=== PATIENT | female | born 1960 | race Hispanic/Latino ===

== ENCOUNTER 2022-02-18 09:40 | Observation (INO) | payer MEDICARE, OTHER ==
[2022-02-18] MEDS ORDERED: FOLIC ACID 5 MG/ML VIAL ONE (10:10)
[2022-02-18] MEDS ORDERED: NA CHLORIDE 0.9% 1,000 ML ONE (10:10)
--- NOTE | 2022-02-18 10:27 | RAD REPORT ---
EXAM DESCRIPTION: RAD - Chest Single View - 02/18/2022 10:15 am CLINICAL HISTORY: COUGH Chest pain. COMPARISON: No comparisons FINDINGS: Portable technique limits examination quality. The lungs are mildly emphysematous but grossly clear. The heart is normal in size. No displaced fract ures. IMPRESSION: No acute intrathoracic process suspected.
[2022-02-18 10:33] LABS: Absolute Lymphocytes (CBC) 2.5 K/uL (0.7-4.9); Hematocrit 39.8 % (36.0-45.0); Lymphocytes % 37.2 % (15.3-44.8); MCV 82.7 fL (80-100); MPV 8.5 fL (7.6-11.3); RBC Red Blood Cell Count 4.82 M/uL (3.86-4.86)
[2022-02-18 10:38] LABS: Protime INR 1.03
[2022-02-18 10:44] LABS: Urine Blood Trace-intact (Negative); Urine Glucose Negative (Negative); Urine Protein Negative (Negative); Urine pH 7.5 (5.0-7.0)
--- NOTE | 2022-02-18 10:47 | RAD REPORT ---
EXAM DESCRIPTION: CT - Ct Stroke Brain Wo Cont - 02/18/2022 10:21 am CLINICAL HISTORY: Neuro deficit, acute, stroke suspected Headache, drowsiness COMPARISON: Head angio dated 02/18/2022 TECHNIQUE: All CT scans are performed using dose optimization technique as appropriate and may inclu de automated exposure control or mA/KV adjustment according to patient size. FINDINGS: No intracranial hemorrhage, hydrocephalus or extra-axial fluid collection.No areas of brai n edema or evidence of midline shift. 19 x 16 mm suspected partially calcified mass seen left posteri or fossa, probably extra-axial location. This may represent the meningioma. The paranasal sinuses and mastoids are clear. The calvarium is intact. IMPRESSION: No acute intracranial abnormality. Probable 19 x 16 mm partially calcified mass left posterior fossa may represent a meningioma. Recomme nd MRI brain with contrast for further assessment. The findings were discussed with Dr Sequeira in the emergency room on 02/18/2022 at 10:22 a.m. by patti cobb.
[2022-02-18 10:48] LABS: ALT/SGPT 17 U/L (12-78); AST/SGOT 11 U/L (15-37); Albumin 3.5 g/dL (3.4-5.0); Alkaline Phosphatase 103 U/L (45-117); BUN Blood Urea Nitrogen 10 mg/dL (7-18); Bicarbonate 29 mmol/L (21-32); Bilirubin Direct < 0.1 mg/dL (0-0.2); Bilirubin Total 0.3 mg/dL (0.2-1.0); C-Reactive Protein 8.75 mg/L (<3.00); Glomerular Filtration Rate 77 ml/min (=/>90); Glucose Level 120 mg/dL (74-106); Magnesium 2.1 mg/dL (1.8-2.4); NT PRO-BNP 153 pg/mL (<125); Potassium 3.1 mmol/L (3.5-5.1); Protein, Total 6.9 g/dL (6.4-8.2); Sodium Level 140 mmol/L (136-145); Troponin High Sensitivity 7.2 pg/mL (<58.9)
--- NOTE | 2022-02-18 10:50 | RAD REPORT ---
EXAM DESCRIPTION: CT - Head angio - 02/18/2022 10:22 am CLINICAL HISTORY: Neuro deficit, acute, stroke suspected Headache, drowsiness, CVA symptomology COMPARISON: No comparisons TECHNIQUE: CT angiography of the head was performed with MIPs. All CT scans are performed using dose optimization technique as appropriate and may include automated exposure control or mA/KV adjustment according to patient size. FINDINGS: 5 mm focally prominent midline contrast collection is seen involving the anterior pericall osal artery branch. This likely represents an aneurysm. No flow-limiting stenosis or vascular malform ation identified. Antegrade flow is seen in the vertebral arteries. The vertebral arteries are codominant. The visualized dural venous sinuses are patent. 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 No additional flow abnormality seen.
[2022-02-18 10:51] LABS: Urine Mucus Slight /HPF (None Seen); Urine RBC <5 /HPF (None Seen)
--- NOTE | 2022-02-18 10:52 | RAD REPORT ---
EXAM DESCRIPTION: CT - Neck Angio - 02/18/2022 10:22 am CLINICAL HISTORY: Neuro deficit, acute, stroke suspected Headache, drowsiness, CVA symptomology COMPARISON: No comparisons TECHNIQUE: CT angiography of the neck vessels was performed with MIPs. All CT scans are performed using dose optimization technique as appropriate and may include automated exposure control or mA/KV adjustment according to patient size. FINDINGS: A left aortic arch is identified with normal three vessel configuration of the great vesse ls. No significant flow abnormality is seen of the common carotid bilaterally. No significant stenosis is identified involving the cervical segments of both internal carotid arteri es. Normal flow is seen within both vertebral arteries. IMPRESSION: No significant flow abnormality of the neck vessels is identified.
[2022-02-18 11:02] LABS: SARS-CoV-2 Antigen Rapid Res Negative (Negative)
[2022-02-18] MEDS ORDERED: ASPIRIN 81 MG CHEWABLE TABLET ONE (11:33)
[2022-02-18] MEDS ORDERED: LABETALOL HCL 100 MG/20 ML ONE (11:34)
[2022-02-18] MEDS ORDERED: LABETALOL HCL 100 MG TAB ONE (11:34)
--- NOTE | 2022-02-18 11:41 | RAD REPORT ---
EXAM DESCRIPTION: MRI - Brain W/Wo Cont - 02/18/2022 11:16 am CLINICAL HISTORY: cva Headache, drowsiness, CVA symptomology COMPARISON: Ct Stroke Brain Wo Cont dated 02/18/2022 TECHNIQUE: Multi-sequence, multiplanar MR imaging of the brain was performed with contrast. FINDINGS: No intracranial hemorrhage, hydrocephalus, or extra-axial fluid collection. No edema or sh ift of midline structures. There is an avidly enhancing mass lateral posterior fossa measuring 23 x 1 9 mm suspected to represent a meningioma. There is a 13 mm area of diffusion restriction left basal g anglia with diminished ADC signal likely representing acute CVA.. The midline structures are normally formed. Mastoid air cells and paranasal sinuses are clear. No additional areas of abnormal enhancement seen. IMPRESSION: 13 mm acute nonhemorrhagic CVA left basal ganglia noted. 23 mm avidly enhancing mass posterolateral aspect of the posterior fossa abutting transverse sinus. T his is favored to represent a meningioma.
--- NOTE | 2022-02-18 12:09 | ER ---
Nurse's Notes [facility] Name: Alison Cowart Age: 61 yrs Sex: Female : 1960 Arrival Date: 02/18/2022 Time: 09:43 Bed 8 Private MD: Diagnosis: Cerebral infarction, unspecified-acute, 24 hours;Essential (primary) hypertension;Tobacco abuse counseling;Tobacco use;Weakness Presentation: 02/18 09:54 Chief complaint: Patient states: R sided numbness and weakness since 1030 02/17/22. Had ll1 trouble talking to daughter yesterday. Coronavirus screen: Vaccine status: Patient reports receiving the 2nd dose of the covid vaccine. Client denies travel out of the [place] in the last 14 days. At this time, the client does not indicate any symptoms associated with coronavirus-19. Ebola Screen: Patient denies travel to an Ebola-affected area in the 21 days before illness onset. Initial Sepsis Screen: Does the patient meet any 2 criteria? No. Patient's initial sepsis screen is negative. Does the patient have a suspected source of infection? No. Patient's initial sepsis screen is negative. Risk Assessment: Do you want to hurt yourself or someone else? Patient reports no desire to harm self or others. Onset of symptoms was February 18, 2022. 09:54 Method Of Arrival: Ambulatory ll1 09:54 Acuity: MIGEL 2 ll1 Triage Assessment: 13:34 General: Appears in no apparent distress. Behavior is calm, cooperative, appropriate ll1 for age. Pain: Denies pain. Historical: - Allergies: 09:54 No Known Allergies; ll1 - PMHx: 09:54 Hypertensive disorder; ll1 - PSHx: 09:54 2 back surgery; tubal ligation; ll1 - Immunization history:: Client reports receiving the 2nd dose of the Covid vaccine. - Social history:: Smoking status: Patient reports the use of cigarette tobacco products, smokes one-half pack cigarettes per day. - Family history:: not pertinent. Screenin:31 Abuse screen: Denies threats or abuse. Nutritional screening: No deficits noted. ll1 Tuberculosis screening: No symptoms or risk factors identified. Fall Risk IV access (20 points). Gait- Impaired (20 pts.). Total Jameson Fall Scale indicates Low Risk Score (25-44 pts). Fall prevention measures have been instituted. Side Rails Up X 2 Placed close to Nursing Station Frequent Obs/Assesments occuring Family Present and informed to notify staff if they need to leave bedside As available Patient and Family Educated on Fall Prevention Program and strategies. Assessment: 10:31 Reassessment: No changes from previously documented assessment. Patient and/or family ll1 updated on plan of care and expected duration. Pain level reassessed. 10:41 Reassessment: pt transported to MRI via wheelchair. vg1 11:38 Reassessment: No changes from previously documented assessment. Patient and/or family ll1 updated on plan of care and expected duration. Pain level reassessed. Patient is alert, oriented x 3, equal unlabored respirations, skin warm/dry/pink. 12:11 Reassessment: No changes from previously documented assessment. Patient and/or family ll1 updated on plan of care and expected duration. Pain level reassessed. Patient is alert, oriented x 3, equal unlabored respirations, skin warm/dry/pink. 13:03 Reassessment: No changes from previously documented assessment. Patient and/or family ll1 updated on plan of care and expected duration. Pain level reassessed. Patient is alert, oriented x 3, equal unlabored respirations, skin warm/dry/pink. 13:37 Reassessment: No changes from previously documented assessment. Patient and/or family ll1 updated on plan of care and expected duration. Pain level reassessed. Patient is alert, oriented x 3, equal unlabored respirations, skin warm/dry/pink. Vital Signs: 09:54 BP 193 / 120; Pulse 88; Resp 16; Temp 98.7; Pulse Ox 100% ; Weight 68.04 kg; Height 5 ll1 ft. 4 in. (162.56 cm); Pain 0/10; 11:40 BP 185 / 131; Pulse 83; ll1 12:11 BP 181 / 117; Pulse 73; Pulse Ox 100% on R/A; ll1 12:49 BP 200 / 120; Pulse 71; ll1 13:30 BP 181 / 105; Pulse 67; Resp 18; Pulse Ox 99% on R/A; ll1 09:54 Body Mass Index 25.75 (68.04 kg, 162.56 cm) ll1 NIH Stroke Scale Scores: 11:40 NIHSS Score: 5 elvia ED Course: 09:43 Patient arrived in ED. am2 09:50 Arpit Sequeira MD is Attending Physician. [facility] 09:53 Dena Mascorro, RN is Primary Nurse. ll1 09:54 Arm band placed on Patient placed in an exam room, on a stretcher. ll1 09:56 Triage completed. ll1 10:17 XRAY Chest (1 view) In Process Unspecified. EDMS 10:23 CT Stroke Brain w/o Contrast In Process Unspecified. EDMS 10:24 CT Head Angio In Process Unspecified. EDMS 10:24 CT Neck Angio In Process Unspecified. EDMS 10:40 Inserted saline lock: 20 gauge in right antecubital area, using aseptic technique. ll1 Blood collected. 10:46 SARS RAPID Sent. ll1 11:18 Brain W/Wo Cont In Process Unspecified. EDMS 12:01 Bucky Botello is Hospitalizing Provider. [facility] 13:34 No provider procedures requiring assistance completed. ll1 13:35 Patient has correct armband on for positive identification. Bed in low position. Call ll1 light in reach. Side rails up X2. Client placed on continuous cardiac and pulse oximetry monitoring. NIBP monitoring applied. campus monitor on. 13:35 Patient admitted, IV remains in place. ll1 Administered Medications: 10:30 Drug: NS 0.9% 1000 ml Route: IV; Rate: 1 bolus; Site: right antecubital; 1 13:02 Follow up: Response: No adverse reaction; IV Status: Completed infusion; IV Intake: ll1 1000ml 10:31 Drug: foLIC Acid 1 mg Route: IVPB; Site: right antecubital; 1 13:02 Follow up: Response: No adverse reaction; IV Status: Completed infusion; IV Intake: ll1 0.2ml 11:38 Drug: Aspirin Chewable Tablet 324 mg Route: PO; ll1 13:02 Follow up: Response: No adverse reaction ll1 11:39 Drug: Labetalol 100 mg Route: PO; ll1 13:02 Follow up: Response: No adverse reaction ll1 11:40 Drug: Labetalol 20 mg Route: IV; Rate: per protocol; Infused Over: 2 mins; Site: right ll1 antecubital; 13:01 Follow up: Response: No adverse reaction; IV Status: Completed infusion; IV Intake: 4ml 1 13:01 Drug: Norvasc (amlodipine) 10 mg Route: PO; ll1 13:36 Follow up: Response: No adverse reaction ll1 13:01 Drug: PlaVIX (clopidogrel) 75 mg Route: PO; 1 13:36 Follow up: Response: No adverse reaction 1 Medication: 10:31 VIS not applicable for this client. 1 Intake: 13:01 IV: 4ml; Total: 4ml. ll1 13:02 IV: 1000ml; Total: 1004ml. ll1 13:02 IV: 0ml; Total: 1004ml. 1 Outcome: 12:09 Decision to Hospitalize by Provider. elvia 13:35 Admitted to Med/surg accompanied by tech, via wheelchair, room 409, with chart, Report ll1 called to ELIUD Junior 13:35 Condition: stable 13:35 Instructed on the need for admit. 13:36 Patient left the ED. ll1 NIH Stroke Scale - NIH Stroke Score Date: 02/18/2022 Time: 11:40 Total Score = 5 1a. Level of Consciousness (LOC) - 0(Alert) 1b. Level of Consciousness (LOC) (Month \T\ Age) - 0(Both) 1c. LOC Commands (Open \T\ Closes Eyes/Juvenile Justice Specialist) - 0(Both) 2. Best Gaze (Lateral Gaze Paresis) - 0(Normal) 3. Visual Field Loss - 0(No visual loss) 4. Facial Palsy - 0(Normal) 5a. Left Arm: Motor (10-second hold) - 0(No drift) 5b. Right Arm: Motor (10-second hold) - 1(Drift) 6a. Left Leg: Motor (5-second hold - always test supine) - 0(No drift) 6b. Right Leg: Motor (5-second hold - always test supine) - 1(Drift) 7. Limb Ataxia (finger/nose \T\ heel/man - test with eyes open) - 2(Present in two limbs) 8. Sensory Loss (pinprick arms/legs/face) - 0(Normal) 9. Best Language: Aphasia (description/naming/reading) - 1(Mild to moderate aphasia) 10. Dysarthria (speech clarity - read or repeat words) - 0(Normal) 11. Extinction and Inattention (visual/tactile/auditory/spatial/personal) - 0(No abnormality) Initials: elvia Signatures: Dispatcher [employer] Arpit Gan MD MD cha Moreno, Amanda am2 Roselia Pacheco RN RN vg1 Dena Mascorro RN RN ll1 Corrections: (The following items were deleted from the chart) 13:38 13:30 BP 181 / 105; Pulse 83bpm; ll1 ll1
--- NOTE | 2022-02-18 12:09 | EDPHYS ---
Physician Documentation [facility] Name: Alison Cowart Age: 61 yrs Sex: Female : 1960 Arrival Date: 02/18/2022 Time: 09:43 Bed 8 Private MD: CHELI Physician Arpit Sequeira HPI: 02/18 11:37 This 61 yrs old Female presents to ER via Ambulatory with complaints of elvia Numbness Of Arm - right, Doesn't Feel Right - onset yesterday. 11:37 The patient or guardian complains of decreased range of motion. The complaints affect elvia the. 11:40 Context: The problem was sustained at a store. Onset: The symptoms/episode elvia began/occurred yesterday, at 10:30. Treatment prior to arrival includes: no previous treatment. Modifying factors: The symptoms are alleviated by nothing. the symptoms are aggravated by nothing. The patient's problem is reported as dysphasia, weakness, in the right upper extremity, in the right lower extremity. Duration: The episode is continuous, speech improved. The symptoms are alleviated by nothing. The symptoms are aggravated by nothing. Historical: - Allergies: 09:54 No Known Allergies; ll1 - PMHx: 09:54 Hypertensive disorder; ll1 - PSHx: 09:54 2 back surgery; tubal ligation; ll1 - Immunization history:: Client reports receiving the 2nd dose of the Covid vaccine. - Social history:: Smoking status: Patient reports the use of cigarette tobacco products, smokes one-half pack cigarettes per day. - Family history:: not pertinent. ROS: 11:40 Constitutional: Negative for fever, chills, and weight loss, Eyes: Negative for injury, elvia pain, redness, and discharge, ENT: Negative for injury, pain, and discharge, Neck: Negative for injury, pain, and swelling, Cardiovascular: Negative for chest pain, palpitations, and edema, Respiratory: Negative for shortness of breath, cough, wheezing, and pleuritic chest pain, Abdomen/GI: Negative for abdominal pain, nausea, vomiting, diarrhea, and constipation, Back: Negative for injury and pain, : Negative for injury, bleeding, discharge, and swelling, MS/Extremity: Negative for injury and deformity, Skin: Negative for injury, rash, and discoloration, Psych: Negative for depression, anxiety, suicide ideation, homicidal ideation, and hallucinations, Allergy/Immunology: Negative for hives, rash, and allergies, Endocrine: Negative for neck swelling, polydipsia, polyuria, polyphagia, and marked weight changes, Hematologic/Lymphatic: Negative for swollen nodes, abnormal bleeding, and unusual bruising. 11:40 Neuro: Positive for speech changes, weakness, of the right arm and right leg. Exam: 11:40 Constitutional: This is a well developed, well nourished patient who is awake, alert, elvia and in no acute distress. Head/Face: Normocephalic, atraumatic. Eyes: Pupils equal round and reactive to light, extra-ocular motions intact. Lids and lashes normal. Conjunctiva and sclera are non-icteric and not injected. Cornea within normal limits. Periorbital areas with no swelling, redness, or edema. ENT: Nares patent. No nasal discharge, no septal abnormalities noted. Tympanic membranes are normal and external auditory canals are clear. Oropharynx with no redness, swelling, or masses, exudates, or evidence of obstruction, uvula midline. Mucous membranes moist. Neck: Trachea midline, no thyromegaly or masses palpated, and no cervical lymphadenopathy. Supple, full range of motion without nuchal rigidity, or vertebral point tenderness. No Meningismus. Chest/axilla: Normal chest wall appearance and motion. Nontender with no deformity. No lesions are appreciated. Cardiovascular: Regular rate and rhythm with a normal S1 and S2. No gallops, murmurs, or rubs. Normal PMI, no JVD. No pulse deficits. Respiratory: Lungs have equal breath sounds bilaterally, clear to auscultation and percussion. No rales, rhonchi or wheezes noted. No increased work of breathing, no retractions or nasal flaring. Abdomen/GI: Soft, non-tender, with normal bowel sounds. No distension or tympany. No guarding or rebound. No evidence of tenderness throughout. Back: No spinal tenderness. No costovertebral tenderness. Full range of motion. Female : Normal external genitalia. Skin: Warm, dry with normal turgor. Normal color with no rashes, no lesions, and no evidence of cellulitis. MS/ Extremity: Pulses equal, no cyanosis. Neurovascular intact. Full, normal range of motion. Psych: Awake, alert, with orientation to person, place and time. Behavior, mood, and affect are within normal limits. 11:40 ECG was reviewed by the Attending Physician. 11:40 Neuro: Orientation: is normal, appropriate for stated age, no acute changes, to person, place, time \T\ situation. Mentation: is normal, appropriate for stated age, no acute changes, Memory: is normal, appropriate for stated age, no acute changes, Cranial nerves: grossly normal, is grossly normal based on the patient's age, no acute changes, Cerebellar function: is grossly normal, Motor: moves all fours, strength is 4/5 in the right arm and right leg, Sensation: is normal, no obvious gross deficits, appropriate Gait: not tested. Babinski testing is normal. 12:15 Radiologist reports: see report [facility] Vital Signs: 09:54 BP 193 / 120; Pulse 88; Resp 16; Temp 98.7; Pulse Ox 100% ; Weight 68.04 kg; Height 5 ll1 ft. 4 in. (162.56 cm); Pain 0/10; 11:40 BP 185 / 131; Pulse 83; ll1 12:11 BP 181 / 117; Pulse 73; Pulse Ox 100% on R/A; ll1 12:49 BP 200 / 120; Pulse 71; ll1 13:30 BP 181 / 105; Pulse 67; Resp 18; Pulse Ox 99% on R/A; ll1 09:54 Body Mass Index 25.75 (68.04 kg, 162.56 cm) ll1 NIH Stroke Scale Scores: 11:40 NIHSS Score: 5 elvia MDM: 09:50 Patient medically screened. elvia 12:13 Differential diagnosis: CVA, TIA, Dementia. Data reviewed: vital signs, nurses notes, [facility] lab test result(s), EKG, radiologic studies, CT scan, MRI, plain films. Data interpreted: engine monitor: rate is 73 beats/min, rhythm is regular. Test interpretation: by ED physician or midlevel provider: ECG, plain radiologic studies. Counseling: I had a detailed discussion with the patient and/or guardian regarding: the historical points, exam findings, and any diagnostic results supporting the discharge/admit diagnosis, the presence of at least one elevated blood pressure reading (>120/80) during this emergency department visit, lab results, the need for further work-up and treatment in the hospital. Physician consultation: Iker Ford MD and will see patient in inpatient room. 02/18 09:54 Order name: Basic Metabolic Panel; Complete Time: 11:26 [facility] 02/18 09:54 Order name: CBC with Diff [facility] 02/18 09:54 Order name: LFT's; Complete Time: 11:26 [facility] 02/18 09:54 Order name: Magnesium; Complete Time: 11:26 [facility] 02/18 09:54 Order name: NT PRO-BNP; Complete Time: 11: [facility] 02/18 09:54 Order name: PT-INR; Complete Time: 11: [facility] 02/18 09:54 Order name: Troponin HS; Complete Time: 11: [facility] 02/18 09:54 Order name: Sed Rate [facility] 02/18 09:54 Order name: CRP; Complete Time: 11: [facility] 02/18 09:54 Order name: Urine Microscopic Only; Complete Time: 11: [facility] 02/18 09:55 Order name: SARS RAPID; Complete Time: 11: [facility] 02/18 10:45 Order name: Urine Dipstick-Ancillary; Complete Time: 11:26 [facility] 02/18 12:15 Order name: Lipid Profile [facility] 02/18 13:00 Order name: Lipid Profile [facility] 02/18 09:54 Order name: XRAY Chest (1 view); Complete Time: 11: [facility] 02/18 09:54 Order name: EKG; Complete Time: 09:55 [facility] 02/18 09:54 Order name: Cardiac monitoring; Complete Time: 10:30 [facility] 02/18 09:54 Order name: CT Stroke Brain w/o Contrast; Complete Time: 11:26 [facility] 02/18 09:54 Order name: CT Head Angio; Complete Time: 11: [facility] 02/18 09:54 Order name: CT Neck Angio; Complete Time: 11:26 [facility] 02/18 10:52 Order name: Brain W/Wo Cont [facility] 02/18 13:27 Order name: CREATININE WHOLE BLOOD [facility] 02/18 09:54 Order name: EKG - Nurse/Tech; Complete Time: 10:30 [facility] 02/18 09:54 Order name: IV Saline Lock; Complete Time: 10:10 [facility] 02/18 09:54 Order name: Labs collected and sent; Complete Time: 10:10 [facility] 02/18 09:54 Order name: O2 Per Protocol; Complete Time: 09:56 [facility] 02/18 09:54 Order name: O2 Sat Monitoring; Complete Time: :56 [facility] 02/18 09:54 Order name: Urine Dipstick-Ancillary (obtain specimen); Complete Time: 10:46 elvia EC:40 Rate is 81 beats/min. Rhythm is regular. QRS [place] is Normal. CA interval is normal. QRS elvia interval is normal. QT interval is normal. No Q waves. T waves are Normal. No ST changes noted. Clinical impression: NSR w/ Non-specific ST/T Changes and No evidence of ischemia. Interpreted by me. Reviewed by me. Administered Medications: 10:30 Drug: NS 0.9% 1000 ml Route: IV; Rate: 1 bolus; Site: right antecubital; ll1 13:02 Follow up: Response: No adverse reaction; IV Status: Completed infusion; IV Intake: ll1 1000ml 10:31 Drug: foLIC Acid 1 mg Route: IVPB; Site: right antecubital; ll1 13:02 Follow up: Response: No adverse reaction; IV Status: Completed infusion; IV Intake: ll1 0.2ml 11:38 Drug: Aspirin Chewable Tablet 324 mg Route: PO; ll1 13:02 Follow up: Response: No adverse reaction ll1 11:39 Drug: Labetalol 100 mg Route: PO; ll1 13:02 Follow up: Response: No adverse reaction ll1 11:40 Drug: Labetalol 20 mg Route: IV; Rate: per protocol; Infused Over: 2 mins; Site: right ll1 antecubital; 13:01 Follow up: Response: No adverse reaction; IV Status: Completed infusion; IV Intake: 4ml ll1 13:01 Drug: Norvasc (amlodipine) 10 mg Route: PO; ll1 13:36 Follow up: Response: No adverse reaction ll1 13:01 Drug: PlaVIX (clopidogrel) 75 mg Route: PO; ll1 13:36 Follow up: Response: No adverse reaction ll1 Disposition Summary: 02/18/22 12:09 Hospitalization Ordered Hospitalization Status: Inpatient Admission elvia Provider: Bucky Botello cha Location: Telemetry/MedSurg (Inpatient) elvia Condition: Fair elvia Problem: new elvia Symptoms: have improved elvia Bed/Room Type: Standard elvia Room Assignment: 406(02/18/22 13:14) dw Diagnosis - Cerebral infarction, unspecified - acute, 24 hours elvia - Essential (primary) hypertension elvia - Tobacco abuse counseling levia - Tobacco use elvia - Weakness elvia Forms: - Medication Reconciliation Form elvia - SBAR form elvia NIH Stroke Scale - NIH Stroke Score Date: 02/18/2022 Time: 11:40 Total Score = 5 1a. Level of Consciousness (LOC) - 0(Alert) 1b. Level of Consciousness (LOC) (Month \T\ Age) - 0(Both) 1c. LOC Commands (Open \T\ Closes Eyes/Distribution System Operator) - 0(Both) 2. Best Gaze (Lateral Gaze Paresis) - 0(Normal) 3. Visual Field Loss - 0(No visual loss) 4. Facial Palsy - 0(Normal) 5a. Left Arm: Motor (10-second hold) - 0(No drift) 5b. Right Arm: Motor (10-second hold) - 1(Drift) 6a. Left Leg: Motor (5-second hold - always test supine) - 0(No drift) 6b. Right Leg: Motor (5-second hold - always test supine) - 1(Drift) 7. Limb Ataxia (finger/nose \T\ heel/man - test with eyes open) - 2(Present in two limbs) 8. Sensory Loss (pinprick arms/legs/face) - 0(Normal) 9. Best Language: Aphasia (description/naming/reading) - 1(Mild to moderate aphasia) 10. Dysarthria (speech clarity - read or repeat words) - 0(Normal) 11. Extinction and Inattention (visual/tactile/auditory/spatial/personal) - 0(No abnormality) Initials: elvia Signatures: Dispatcher [employer] EDSusan Ryan RN RN dw Anderson, Corey, MD MD cha Lewis, Lynsay, RN RN ll1 Corrections: (The following items were deleted from the chart) 10:52 09:55 MR STROKE PROTOCOL+MRI.RAD.ANETA ordered. [facility] EDMS 13:14 12:09 elvia sheehan
[2022-02-18] MEDS ORDERED: AMLODIPINE 10 MG TAB ONE (12:54)
[2022-02-18] MEDS ORDERED: CLOPIDOGREL 75 MG TABLET ONE (12:54)
[2022-02-18] MEDS ORDERED: ACETAMINOPHEN 500 MG TAB PO PRN (13:46)
[2022-02-18] MEDS ORDERED: ONDANSETRON 4 MG/2 ML VIAL IV PRN (13:46)
--- NOTE | 2022-02-18 13:46 | P.HP ---
Certification for Inpatient Patient admitted to: Observation With expected LOS: <2 Midnights Practitioner: I am a practitioner with admitting privileges, knowledge of patient current condition, hospital course, and medical plan of care. Services: Services provided to patient in accordance with Admission requirements found in Title 42 Section 412.3 of the Code of Federal Regulations Patient History Date of Service: 02/18/22 Reason for admission: Acute CVA History of Present Illness: 61-year-old man with a history of hypertension and a non-smoker presented to the emergency department due to right-sided numbness and weakness of 1 day duration. Patient also reported initial difficulty with her speech. She states that she was dragging her right leg due to weakness and felt clumsy in his right hand. Stroke alert was called in the ED. 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 Patient is outside window for tPA. She states that she has seen some improvement in her right-sided weakness. Patient is hospitalized for further stroke work-up. Allergies No Known Allergies Allergy (Unverified 02/18/22 10:26) - Past Medical/Surgical History -: Hypertension -: Tobacco use - Family History Mother -: Diabetes - Social History Smoking Status: Current every day smoker Alcohol use: No CD- Drugs: No Place of Residence: Home Review of Systems Other: Except as documented, all other systems reviewed and negative. Physical Examination - Physical Exam General: Alert, In no apparent distress, Oriented x3 HEENT: Mucous membr. moist/pink Neck: JVD not distended Respiratory: Clear to auscultation bilaterally, Normal air movement Cardiovascular: Regular rate/rhythm, No murmurs Gastrointestinal: Soft and benign, Non-distended, No tenderness Musculoskeletal: No swelling, No tenderness Integumentary: No rashes, No cyanosis Neurological: Normal strength at 5/5 x4 extr, Cranial nerves 3-12 intact Lymphatics: No axilla or inguinal lymphadenopathy - Studies Laboratory Data (last 24 hrs) 02/18/22 10:00: Triglycerides 109, Cholesterol 174, HDL Cholesterol 42, Cholesterol/HDL Ratio 4.14 02/18/22 10:00: PT 11.3, INR 1.03 02/18/22 10:00: WBC 6.80, Hgb 13.0, Hct 39.8, Plt Count 236 10/21/22 10:00: Sodium 140, Potassium 3.1 L, BUN 10, Creatinine 0.85, Glucose 120 H, Magnesium 2.1, Total Bilirubin 0.3, AST 11 L, ALT 17, Alkaline Phosphatase 103 Assessment and Plan - Problems (Diagnosis) (1) Acute CVA (cerebrovascular accident) Current Visit: Yes Status: Acute (2) Hypertension Current Visit: Yes Status: Acute (3) Tobacco use Current Visit: Yes Status: Acute - Plan Placed under observation on the medical floor. Start aspirin and Plavix Folic acid High-dose Lipitor. Bedside swallow evaluation PT evaluation. Permissive hypertension Hydralazine as needed for BP spikes. Obtain echocardiogram. Neurology consult. Smoking cessation advised. I spent about 3 minutes counseling patient on smoking cessation. - Advance Directives Does patient have a Living Will: No Does patient have a Durable POA for Healthcare: No
[2022-02-18] MEDS ORDERED: POTASSIUM CL SA 10 MEQ TAB PO ONE (13:49)
[2022-02-18] MEDS ORDERED: HYDRALAZINE HCL 20 MG/ML VIAL IV PRN ×2 (14:01→14:02)
[2022-02-18] MEDS: NA CHLORIDE 0.9% 1,000 ML IV SCH (14:38)
[2022-02-18 14:52] VITALS: BMI 25.7
[2022-02-18] MEDS ORDERED: ATORVASTATIN 80 MG TAB PO SCH (21:00)
[2022-02-19] MEDS: NA CHLORIDE 0.9% 1,000 ML IV SCH (03:36)
[2022-02-19 04:30] VITALS: O2SAT 99
[2022-02-19 04:41] LABS: Absolute Lymphocytes (CBC) 2.4 K/uL (0.7-4.9); Hematocrit 37.9 % (36.0-45.0); Lymphocytes % 32.3 % (15.3-44.8); MCV 82.4 fL (80-100); MPV 8.8 fL (7.6-11.3)
[2022-02-19 05:17] LABS: Magnesium 2.1 mg/dL (1.8-2.4); Phosphorus 3.6 mg/dL (2.5-4.9); Potassium 3.5 mmol/L (3.5-5.1); Thyroid Stimulating Hormone 1.3 uIU/mL (0.360-3.740)
[2022-02-19] MEDS ORDERED: ASPIRIN EC 81 MG TAB PO SCH (09:00)
[2022-02-19] MEDS ORDERED: AMLODIPINE 10 MG TAB PO SCH (09:00)
[2022-02-19] MEDS ORDERED: POTASSIUM CL SA 10 MEQ TAB PO ONE (09:00)
[2022-02-19] MEDS ORDERED: ENOXAPARIN 40 MG/0.4 ML SQ SCH (09:00)
[2022-02-19] MEDS ORDERED: CLOPIDOGREL 75 MG TABLET PO SCH (09:00)
--- NOTE | 2022-02-19 12:14 | P.DS ---
Admission Date: 02/18/22 Discharge Date: 02/19/22 Disposition: ROUTINE DISCHARGE Discharge Condition: FAIR Reason for Admission: Acute CVA - Problems (1) Acute CVA (cerebrovascular accident) Current Visit: Yes Status: Acute (2) Hypertension Current Visit: Yes Status: Acute (3) Tobacco use Current Visit: Yes Status: Acute Brief History of Present Illness: 61-year-old man with a history of hypertension and a non-smoker presented to the emergency department due to right-sided numbness and weakness of 1 day duration. Patient also reported initial difficulty with her speech. She states that she was dragging her right leg due to weakness and felt clumsy in his right hand. Stroke alert was called in the ED. 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 Patient is outside window for tPA. She states that she has seen some improvement in her right-sided weakness. Patient is hospitalized for further stroke work-up. Hospital Course: Patient placed on observation on the medical floor. Echocardiogram obtained as part of stroke work-up. Patient had no trouble swallowing or trouble with his speech. She was seen by PT and noted to be independent. She was still complaining of some weakness in the right hand. She has been ambulatory with no issue, and no further need for PT. Echocardiogram result is pending. 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 Lipid profile showing LDL within normal limit. Patient treated with aspirin, Lipitor, plavix. She received amlodipine and hydralazine for severe BP elevation. Her BP is improved. Patient is stable. Stroke counseling provided. Patient is discharged and informed to follow-up with Neurology as outpatient. She may also need four-vessel angiogram to further evaluate the aneurysm. Patient was visiting from [place] and prefers to follow-up with a neurologist over there. Family took with them a CD of the images. Vital Signs/Physical Exam: Temp Pulse Resp BP Pulse Ox 97.3 F 80 16 175/94 H 98 02/19/22 08:00 02/19/22 08:31 02/19/22 08:00 02/19/22 08:31 02/19/22 08:00 General: Alert, In no apparent distress, Oriented x3 HEENT: Mucous membr. moist/pink Neck: Supple, JVD not distended Respiratory: Clear to auscultation bilaterally, Normal air movement Cardiovascular: Regular rate/rhythm, Normal S1 S2 Gastrointestinal: Soft and benign, Non-distended, No tenderness Musculoskeletal: No swelling Integumentary: No rashes, No cyanosis Neurological: Normal strength at 5/5 x4 extr Laboratory Data at Discharge: WBC 7.50 K/uL (4.3-10.9) 02/19/22 03:57 Hgb 12.9 g/dL (12.0-15.0) 02/19/22 03:57 Hct 37.9 % (36.0-45.0) 02/19/22 03:57 Plt Count 227 K/uL (152-406) 02/19/22 03:57 PT 11.3 SECONDS (9.5-12.5) 02/18/22 10:00 INR 1.03 02/18/22 10:00 Sodium 140 mmol/L (136-145) 02/19/22 03:57 Potassium 3.5 mmol/L (3.5-5.1) 02/19/22 03:57 BUN 7 mg/dL (7-18) 02/19/22 03:57 Creatinine 0.65 mg/dL (0.55-1.3) 02/19/22 03:57 Glucose 106 mg/dL (74-106) 02/19/22 03:57 Phosphorus 3.6 mg/dL (2.5-4.9) 02/19/22 03:57 Magnesium 2.1 mg/dL (1.8-2.4) 02/19/22 03:57 Total Bilirubin 0.3 mg/dL (0.2-1.0) 02/18/22 10:00 AST 11 U/L (15-37) L 02/18/22 10:00 ALT 17 U/L (12-78) 02/18/22 10:00 Alkaline Phosphatase 103 U/L (45-117) 02/18/22 10:00 Triglycerides 109 mg/dL (<150) 02/18/22 10:00 Cholesterol 174 mg/dL (<200) 02/18/22 10:00 HDL Cholesterol 42 mg/dL (40-60) 02/18/22 10:00 Cholesterol/HDL Ratio 4.14 02/18/22 10:00 Home Medications: Cyclobenzaprine HCl [Flexeril] 5 mg PO Q6HR PRN 02/18/22 Hydrocodone Bit/Acetaminophen [Hydrocodon-Acetaminoph 7.5-325] 1 tab PO Q6HR PRN 02/18/22 Omeprazole [Prilosec] 40 mg PO DAILY 02/18/22 Sucralfate [Carafate*] 1 tab PO QID 02/18/22 Amlodipine [Norvasc*] 10 mg PO DAILY #30 tab 02/19/22 Aspirin [Aspirin EC 81 MG] 81 mg PO DAILY #30 tab 02/19/22 Atorvastatin Calcium [Lipitor] 40 mg PO BEDTIME #30 tab 02/19/22 Clopidogrel Bisulfate [Plavix*] 75 mg PO DAILY #30 tab 02/19/22 Folic Acid 1 mg PO DAILY #30 tab 02/19/22 New Medications: Aspirin [Aspirin EC 81 MG] 81 mg PO DAILY #30 tab Folic Acid 1 mg PO DAILY #30 tab Atorvastatin Calcium [Lipitor] 40 mg PO BEDTIME #30 tab Amlodipine [Norvasc*] 10 mg PO DAILY #30 tab Clopidogrel Bisulfate [Plavix*] 75 mg PO DAILY #30 tab Physician Discharge Instructions: Follow up with Neurology within 2 weeks. ICD I63. Diet: AHA Activity: Ad mimi Followup: NONE,NONE [Primary Care Provider] - Iker Ford MD [ASSOCIATE-ACTIVE - CAN ADMIT] - (within 2 weeks.) Time spent managing pt's care (in minutes): 36
[2022-02-19 13:26] VITALS: BP 162/90; TEMP 98.4
--- NOTE | 2022-02-20 16:36 | EKG ---
Test Date: 2022-02-18 Test Time: 10:31:06 Electrical Sign Wirer Helper: LML MEASUREMENT RESULTS: Intervals: Rate: 81 NV: 176 QRSD: 86 QT: 380 QTc: 441 Larned: P: 49 NV: 176 QRS: -39 T: 11 INTERPRETIVE STATEMENTS: Normal sinus rhythm Left axis deviation Pulmonary disease pattern Abnormal ECG No previous ECG available for comparison Electronically Signed On 02-20-22 16:35:11 CDT by Sincere Sal
--- NOTE | 2022-02-21 07:54 | ECHO ---
HEIGHT: 5 ft 4 in WEIGHT: 150 lb 0 oz DATE OF STUDY: 02/18/[address]: Bucky Botello MD 2-DIMENSIONAL: YES M.MODE: YES DOPPLER: YES COLOR FLOW: YES TDS: PORTABLE: DEFINITY: BUBBLE STUDY: DIAGNOSIS: CEREBRAL VASCULAR ACCIDENT CARDIAC HISTORY: CATHERIZATION: SURGERY: PROSTHETIC VALVE: PACEMAKER: MEASUREMENTS (cm) DIASTOLIC (NORMALS) SYSTOLIC (NORMALS) IVSd 1.2 (0.6-1.2) LA Diam 2.8 (1.9-4.0) LVEF 56% LVIDd 3.8 (3.5-5.7) LVIDs 2.7 (2.0-3.5) %FS 29% LVPWd 1.2 (0.6-1.2) Ao Diam 2.5 (2.0-3.7) 2 DIMENSIONAL ASSESSMENT: RIGHT ATRIUM: NORMAL LEFT ATRIUM: NORMAL RIGHT VENTRICLE: NORMAL LEFT VENTRICLE: LEFT VENTRICULAR HYPERTROPHY TRICUSPID VALVE: MILD TRICUSPID REGURGITATION MITRAL VALVE: MILD MITRAL REGURGITATION PULMONIC VALVE: NORMAL AORTIC VALVE: NORMAL PERICARDIAL EFFUSION: NONE AORTIC ROOT: NORMAL LEFT VENTRICULAR WALL MOTION: NORMAL DOPPLER/COLOR FLOW: SEE BELOW COMMENTS: NORMAL LEFT VENTRICULAR EJECTION FRACTION 55-60%. ASYMETRICAL SEPTAL HYPERTROPHY WITH SYSTOLIC ANTERIOR MOTION SUGGESTIVE OF HYPERTROPHIC CARDIOMYOPATHY. MILD MITRAL REGURGITATION. MILD TRICUSPID REGURGITATION. TECHNOLOGIST: MARK MCINTOSH
== END 2022-02-19 13:25 | disposition home or self-care (01) ==
LOC: ER 09:40 → ERHOLD 13:03 → 4TH 13:35
PROVIDERS: ADMIT Internal Medicine; ATTEND Internal Medicine
DX: I63.9 Cerebral infarction, unspecified (principal); R29.705 NIHSS score 5; I10 Essential (primary) hypertension; F17.210 Nicotine dependence, cigarettes, uncomplicated; Z20.822 Contact with and (suspected) exposure to COVID-19
CPT/HCPCS: 36415; 70450; 70496; 70498; 70553; 71045; 80048; 80061; 80076; 81003; 81015; 82565; 82947; 83735; 83880; 84100; 84132; 84443; 84484; 85025; 85610; 85652; 86140; 87811; 93005; 93306; 94760; 96365; 96366; 97161; 99285; G0378; J0360; J1650; J7030; Q9967